=== PATIENT | male | born 1975 | race Caucasian/White ===

== ENCOUNTER 2016-07-04 12:13 | Inpatient (IN) | payer OTHER ==
[2016-07-03 13:37] VITALS: BMI 41.3
[~2016-07-04] VITALS: Ht 175.3 cm; Wt 122.0 kg
[2016-07-04] VITALS (25 sets, daily range): BP systolic 108–189; BP diastolic 53–103; PULSE 88–117; RESP 11–25; Ht 175.3 cm; Wt 122.0 kg
[~2016-07-04 12:13] MED LIST: CEFAZOLIN 1 GM INJ ONE; METF500T4 PO; NORCO
[2016-07-04] MEDS ORDERED: morphine 2 MG INJ IV ONE (13:30)
[2016-07-04] MEDS ORDERED: INSULIN ASPART [NOVOLOG] 3 ML PEN SC ONE (13:30)
[2016-07-04] MEDS ORDERED: FENTAnyl 50 MCG/ML VIAL ONE ×2 (13:56→16:49)
[2016-07-04] MEDS ORDERED: MIDAZOLAM 1 MG/ML 2 ML INJ ONE (13:56)
[2016-07-04] MEDS ORDERED: BUPIVACAINE 0.25%/EPI (SDV) 30 ML INJ ONE (13:57)
[2016-07-04] MEDS ORDERED: ROPIVACAINE 0.5 % 30 ML VIAL ONE (13:57)
[2016-07-04] MEDS ORDERED: POLYMYXIN/BACITRACIN 1L IRRIG ONE (14:04)
--- NOTE | 2016-07-04 14:28 | HPN ---
Date/Time of Note Date/Time of Note DATE: 07/04/16 TIME: 14:28 Interval H&P Admission Note Pt. seen H&P reviewed: No system changes SHERLY TORO MD Jul 04, 2016 14:28
[2016-07-04] MEDS ORDERED: ONDANSETRON 4 MG INJ IV PRN ×2 (14:30→17:00)
[2016-07-04] MEDS ORDERED: BISACODYL 10 MG SUPP PR PRN (14:30)
[2016-07-04] MEDS ORDERED: DIPHENHYDRAMINE 25 MG CAP PO PRN (14:30)
[2016-07-04] MEDS ORDERED: CEFAZOLIN 1 GM INJ IV SCH (14:30)
[2016-07-04] MEDS ORDERED: MAGNESIUM HYDROXIDE 30ML CUP PO PRN (14:30)
[2016-07-04] MEDS ORDERED: POVIDONE IODINE 10% 28.4 GM OINT ONE (16:09)
[2016-07-04] MEDS ORDERED: ROCURONIUM 50 MG INJ ONE (16:15)
[2016-07-04] MEDS ORDERED: PROPOFOL 40 ML ONE (16:15)
[2016-07-04] MEDS ORDERED: LIDOCAINE 100 MG SYRINGE ONE (16:15)
[2016-07-04] MEDS ORDERED: ONDANSETRON 4 MG INJ ONE (16:16)
--- NOTE | 2016-07-04 16:48 | OPR ---
Date/Time of Note Date/Time of Note DATE: 07/04/16 TIME: 16:39 Operative Report Procedure Date: Jul 04, 2016 Preoperative Diagnosis 1.left ankle painful hardware status post Maisonneuve fracture syndesmotic fixation Postoperative Diagnosis 1.left ankle painful hardware status post Maisonneuve fracture syndesmotic fixation 2. widening of left ankle syndesmosis 3. Broken left ankle hardware Operation Performed 1.left ankle hardware removal 2.left ankle revision open reduction internal fixation of syndesmosis Surgeon: SHERLY TORO MD Anesthesia: general, other (regional block popliteal and saphenous) Anesthesiologist: JAIDA LIANG MD Tourniquet Time: 60 minutes at 250 mmHg Estimated Blood Loss: 10 - 50 ml's Specimens Removed hardware Complications: None Pt Condition Post Procedure: stable Disposition: PACU Indications Patient is a 41-year-old gentleman who sustained a Maisonneuve fracture dislocation in February 2016 that was treated with 2 screws at that time. Patient was initially nonweightbearing for the first 10-12 weeks and then after beginning weightbearing on it I noticed increasing pain around week 16 where was noticed that he had broken screw as well as both screws were backing out. Thus patient was indicated for surgical removal of the hardware as well as possible open reduction and internal fixation of the syndesmosis. Operative Findings Patient had the correct operative extremity marked in the preoperative holding area and confirmed with patient and consent. Patient was then brought back to the operative theater placed supine operative table and given preoperative regional block anesthesia and antibiotics. The operative extremity was placed with a nonsterile tourniquet. Patient was then prepped and draped in a normal sterile fashion and a timeout was taken and all parties in the room agreed as correct patient, extremity and procedure. Patient was then tourniquet brought up to 250 mmHg. Incision was made over the previous incision site and both's the distal screw and washer were removed as well as the proximal screw had broken was removed with a washer. There is no evidence of any infection although cultures were taken at the time. All screw holes were then curetted thoroughly. And the wound was irrigated thoroughly. The ankle was then tested under fluoroscopic guidance with manual external rotation stress test showing slight widening of the medial clear space and given the ongoing pain and concern for continued syndesmotic injury. We then placed a 4 hole Arthrex plate at the previous site of hardware and 2 screws were placed on the proximal side and 2 tightropes were placed with a Villarreal clamp holding reduction. In order to confirm and there is no interposition of soft tissue on the medial side a small incision was made on the medial side to ensure proper reduction of the button to the tibia. It was confirmed that there is no further widening of the syndesmosis and all wounds were irrigated thoroughly and closed with 3-0 Vicryl followed by 3-0 Monocryl followed by 3-0 nylon. Wounds were then dressed with Xeroform and Betadine ointment and dressed with 4 x 4's 5 ABDs and placed in a well-padded short leg splint in the neutral position. All phalangeal counts were correct. SHERLY TORO MD Jul 04, 2016 16:47
[2016-07-04] MEDS ORDERED: HYDROmorphONE (0.2 MG/ML) 10ML SYG IV ONE (16:49)
[2016-07-04] MEDS: morphine 1 MG/ML 30 ML (PCA) IV SCH (16:51)
[2016-07-04] MEDS ORDERED: DIPHENHYDRAMINE 50 MG INJ IV PRN (17:00)
[2016-07-04] MEDS ORDERED: hydrALAzine 20 MG INJ IV PRN (17:00)
[2016-07-04] MEDS ORDERED: HYDROmorphONE (0.2 MG/ML) 10ML SYG IV PRN ×2 (17:00)
[2016-07-04] MEDS ORDERED: NALOXONE (0.4 MG/ML) INJ IV PRN (17:00)
[2016-07-04] MEDS ORDERED: LABETALOL HCL 20MG INJ IV PRN (17:00)
[2016-07-04] MEDS ORDERED: MEPERIDINE 25 MG INJ IV PRN (17:00)
[2016-07-04] MEDS ORDERED: morphine (1 MG/ML) 10ML SYRINGE IV PRN ×2 (17:00)
[2016-07-04] MEDS ORDERED: KETOROLAC 30 MG INJ ONE (17:05)
[2016-07-04] MEDS ORDERED: FENTAnyl 50 MCG/ML VIAL IV PRN ×3 (17:30)
[2016-07-04] MEDS ORDERED: KETOROLAC 30 MG INJ IV ONE (17:30)
[2016-07-04] MEDS ORDERED: GLUCOSE GEL 15 GRAM TUBE BUCCAL PRN (19:30)
[2016-07-04] MEDS ORDERED: GLUCOSE GEL 15 GRAM TUBE PO PRN ×2 (19:30)
[2016-07-04] MEDS ORDERED: DEXTROSE 50% 50 ML SYRINGE IV PRN ×2 (19:30)
[2016-07-04] MEDS ORDERED: GLUCAGON 1 MG INJ IM PRN (19:30)
[2016-07-04] MEDS: metFORMIN 500 MG TAB PO SCH (20:00)
[2016-07-04] MEDS: SENNA/DOCUSATE NA (8.6MG/50MG) TAB PO SCH (20:36)
[2016-07-04] MEDS: INSULIN ASPART [NOVOLOG] 3 ML PEN SC SCH (20:59)
[2016-07-04] MEDS ORDERED: oxyCODONE 5 MG TAB PO PRN (21:00)
[2016-07-04] MEDS ORDERED: oxyCODONE (CR) 10 MG TAB [oxyCONTIN] PO SCH (21:00)
[2016-07-04] MEDS: GABAPENTIN 300 MG CAP PO SCH (21:37)
[2016-07-04] MEDS: CEFAZOLIN 2 GM/50 ML (PMX) 50 ML IVPB SCH (21:37)
--- NOTE | 2016-07-04 23:09 | CONS ---
DATE OF ADMISSION: 07/04/2016 DATE OF CONSULTATION: 07/04/2016 PHYSICIAN REQUESTING CONSULTATION: Dr. Jung REASON FOR CONSULTATION: Medical management. HISTORY OF PRESENT ILLNESS: This is a pleasant 41-year-old gentleman with past medical history of l eft ankle fracture, diabetes mellitus. Left ankle fracture occurred in 01/2016 and had surgical int ervention with pin placement in his left ankle, although he had some difficulty with ambulating and had left ankle painful hardware status post Maisonneuve fracture. Had domestic fixation, was seen a nd evaluated by orthopedic surgeon, and after initially nonweightbearing for the first 10 to 12, in 02/2016, the fracture was Maisonneuve fracture-dislocation, and he was treated with 2 screws at that time. The patient was initially nonweightbearing for the first 10 to 12 weeks, and after began luke ghtbearing on it he noticed increasing pain around 16 weeks. It was noted that he had broken one of the screws as well as both screws were backing out. The patient was seen and evaluated by orthoped ic surgeon, and it was indicated for surgical removal of hardware as well as a possible open reducti on, internal fixation of syndesmosis. Today on 07/04/2016, patient was admitted by orthopedic surge on for left ankle hardware removal and left ankle revision; open reduction, internal fixation of syn desmosis. The patient under general anesthesia had the procedure. He tolerated procedure well and was taken to recovery room, and medical team was consulted. At this time, the patient denies having any chest pain, shortness of breath, nausea, vomiting, diarrhea. No headache, dizziness, lighthead edness. No change in visual acuity, diplopia, photophobia. No shortness of breath, chest pain, num bness, weakness in his extremities or any other discomfort. PAST MEDICAL AND SURGICAL HISTORY: 1. Diabetes mellitus. 2. Status post left ankle fracture. 3. Status post left ankle revision and open reduction, internal fixation of the left ankle. MEDICATIONS: 1. Tabor. 2. Metformin. SOCIAL HISTORY: Negative x3 for smoking, alcohol, illicit drugs. FAMILY HISTORY: Noncontributory. REVIEW OF SYSTEMS: As above per HPI. Otherwise, 12-point review of systems was found to be negativ e. PHYSICAL EXAMINATION: VITAL SIGNS: Temperature 98, pulse 113, respirations 20, blood pressure 108/55, saturation 98% in r oom air. GENERAL APPEARANCE: The patient is lying in bed comfortably without any distress. He is awake, freda rt, oriented. He is able to answer my questions properly. Body habitus mildly overweight. EYES, EARS, NOSE, THROAT: Conjunctivae, lids are normal. Pupils are normal. Extraocular normal. Hearing grossly normal. Lips, teeth are normal. Oral mucosa is moist. NECK: Supple. Trachea is midline. No lymphadenopathy. RESPIRATORY: Effort is normal. Clear to auscultate bilaterally. CARDIOVASCULAR: Normal S1, S2. Regular rhythm and rate. No murmur, no bruits, no edema. Peripher al pulses, radial pulses palpable. Capillary refill is normal. CHEST: Normal expansion of thorax during inspiration. GASTROINTESTINAL: Abdomen soft, nontender, not distended. Bowel sounds are present. No guarding, rebound. GENITOURINARY: Deferred. MUSCULOSKELETAL: Upper extremities within normal limits. Right lower extremity within normal limit s. Left lower extremity is status post surgical interventions and dry dressing. NEUROLOGIC: Cranial nerves II-XII are grossly intact. PSYCHIATRIC: Normal judgment, insight. Alert, oriented x3. Mood and affect are normal. LABORATORY WORK: Glucose 238 and 194. ASSESSMENT AND PLAN: 1. Left ankle painful, however status post Maisonneuve fracture, syndesmotic fixation ____ in the l eft ankle syndesmosis. The patient is status post left ankle hardware removal and left ankle revisi on, open reduction and internal fixation of syndesmosis. Continue postsurgical care, pain medicatio n. The patient has been placed on cefazolin, Xarelto postoperatively. 2. Diabetes mellitus, uncontrolled. At this time, we will increase the patient's metformin, place patient on insulin sliding scale, low-carb diet. 3. For deep prophylaxis, on Xarelto. 4. We will continue to monitor patient closely. Further recommendations, management and treatment as per clinical course. Total amount of time spent for evaluation of patient and admission workup 40 minutes. Dictated By: MELINDA BROUSSARD MD PN/NTS Conf#: [id number] DID#: [id number]
[2016-07-05] MEDS: morphine 1 MG/ML 30 ML (PCA) IV SCH (00:02)
[2016-07-05] MEDS: CEFAZOLIN 2 GM/50 ML (PMX) 50 ML IVPB SCH ×2 (05:16→14:22)
[2016-07-05] MEDS: oxyCODONE 5 MG TAB PO PRN ×5 (05:17→22:07)
[2016-07-05 05:20] LABS: BASOPHILS % 0.3 % (0.0-2.0); EOSINOPHILS # 0.1 10^3/ul (0.0-0.5); EOSINOPHILS % 1.3 % (0.0-7.0); HEMATOCRIT 44.5 % (42.0-52.0); HEMOGLOBIN 15.4 g/dl (14.0-18.0); LYMPHOCYTES # 2.3 10^3/ul (0.8-2.9); LYMPHOCYTES % 29.6 % (15.0-51.0); MEAN CORPUSCULAR HEMOGLOBIN 29.8 pg (29.0-33.0); MEAN CORPUSCULAR HGB CONC 34.6 g/dl (32.0-37.0); MEAN CORPUSCULAR VOLUME 86.3 fl (82.0-101.0); MEAN PLATELET VOLUME 8.3 fl (7.4-10.4); MONOCYTE # 0.7 10^3/ul (0.3-0.9); NEUTROPHIL # 4.6 10^3/ul (1.6-7.5); NEUTROPHILS % 59.8 % (39.0-77.0); PLATELET COUNT 312 10^3/UL (140-440); RED BLOOD COUNT 5.16 10^6/ul (4.70-6.10); RED CELL DISTRIBUTION WIDTH 13.4 % (11.5-14.5); UNCORRECTED WBC 7.6 10^3/ul (4.8-10.8); WHITE BLOOD COUNT 7.6 10^3/ul (4.8-10.8)
[2016-07-05 05:32] LABS: POTASSIUM 4.7 mmol/L (3.5-5.1)
[2016-07-05 05:35] LABS: CREATININE 0.74 mg/dl (0.61-1.24)
[2016-07-05 05:38] VITALS: BP 136/83; PULSE 86
[2016-07-05 05:48] LABS: CONDITION 1
--- NOTE | 2016-07-05 07:40 | RADRPT ---
PROCEDURE: X-ray fluoroscopy guidance CLINICAL INDICATION: Injury, pain TECHNIQUE: Fluoroscopic guidance was utilized for left ankle hardware removal. COMPARISON: None available FINDINGS: Fluoroscopic guidance was provided. 51.6 seconds of fluoroscopy time was utilized for the procedure . 6 images were obtained during the procedure in progress. IMPRESSION: 1. X-ray fluoroscopic guidance, as above. RPTAT: QQ .Polo Kan MD, MD Date Time Electronically viewed and signed by .Polo Kan MD, on 07/05/2016 07:40 .R/
[2016-07-05] MEDS ORDERED: oxyCODONE 5 MG TAB PO PRN (08:00)
[2016-07-05] MEDS: GABAPENTIN 300 MG CAP PO SCH ×3 (08:21→20:10)
[2016-07-05] MEDS: SENNA/DOCUSATE NA (8.6MG/50MG) TAB PO SCH ×2 (08:21→20:11)
[2016-07-05] MEDS: metFORMIN 500 MG TAB PO SCH ×2 (08:21→17:44)
[2016-07-05 08:24] VITALS: BP 122/81; RESP 20
[2016-07-05] MEDS: INSULIN ASPART [NOVOLOG] 3 ML PEN SC SCH ×4 (08:24→21:01)
[2016-07-05] MEDS ORDERED: oxyCODONE (CR) 15 MG TAB [oxyCONTIN] PO SCH (09:00)
[2016-07-05] MEDS ORDERED: oxyCODONE (CR) 20 MG TAB [oxyCONTIN] PO SCH (13:00)
[2016-07-05] MEDS: ACETAMINOPHEN 325 MG TAB PO SCH ×2 (14:22→22:07)
--- NOTE | 2016-07-05 14:40 | CONS ---
Date/Time of Note Date/Time of Note DATE: 07/05/16 TIME: 14:25 Assessment/Plan Assessment/Plan Chief Complaint/Hosp Course Very pleasant male status post left ankle surgery. I was consulted by Dr Edson Toro to help manage his pain. Pain is poorly controlled VAS 8/10. My recommendations 1. Oxycontin 20 mg TID 2. Oxycodone 10-15 mg q4-6 hr prn 3. Tylenol 650 q8r 4. Gabapentin 300 mg TID 5. 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 Problems: Consultation Date/Type/Reason Admit Date/Time 07/04/16 Date of Consultation: Jul 05, 2016 Type of Consultation: Pain Management Reason for Consultation uncontrolled pain Referring Provider: SHERLY TORO MD Hx of Present Illness very pleasant male with past medical history significant for hypertension, diabetes, s/p extensive left ankle surgery. He reports poor pain control. VAS 8 /10 V Constitutional: improved, no complaints Eyes: no complaints ENT: no complaints Respiratory: no complaints Cardiovascular: no complaints Gastrointestinal: no complaints Genitourinary: no complaints Musculoskeletal: no complaints, other (left foot pain ) Skin: no complaints Neurologic: no complaints Endocrine: no complaints Lymphatic: no complaints Psychological: nl mood/affect, no complaints Immunologic: no complaints Past Medical History Medical History: diabetes, hypertension Past Surgical History left foot surger Family History Significant Family History: diabetes, hypertension Social History Smoking Status: Never smoker Exam/Review of Systems Vital Signs Vitals Vital Signs Date Time Temp Pulse Resp B/P Pulse Ox O2 Delivery O2 Flow Rate FiO2 07/05/16 08:24 97.5 87 20 122/81 98 07/05/16 05:38 Room Air 07/04/16 20:15 2.0 Intake and Output 07/04/16 07/04/16 07/05/16 15:00 23:00 07:00 Intake Total 1650 ml 1250 ml Output Total 525 ml 1220 ml Balance 1125 ml 30 ml Exam Constitutional: alert, oriented, well developed Respiratory: clear to auscultation, normal air movement Cardiovascular: regular rate and rhythm Results Result Diagram: 07/05/16 0441 07/05/16 0441 Results 24 hrs Laboratory Tests Test 07/04/16 16:39 07/04/16 18:47 07/04/16 20:56 07/05/16 01:31 Bedside Glucose 194 223 H 219 269 H Test 07/05/16 04:41 07/05/16 08:11 07/05/16 12:10 Anion Gap 18 H Basophils # 0.0 Basophils % 0.3 Blood Urea Nitrogen 17 Calcium Level 9.0 Carbon Dioxide Level 29 Chloride Level 96 L Creatinine 0.74 Eosinophils # 0.1 Eosinophils % 1.3 Glucose Level 247 H Hematocrit 44.5 Hemoglobin 15.4 Lymphocytes # 2.3 Lymphocytes % 29.6 Mean Corpuscular Hemoglobin 29.8 Mean Corpuscular Hemoglobin Concent 34.6 Mean Corpuscular Volume 86.3 Mean Platelet Volume 8.3 Monocytes # 0.7 Monocytes % 9.0 Neutrophils # 4.6 Neutrophils % 59.8 Nucleated Red Blood Cells # 0.0 Nucleated Red Blood Cells % 0.0 Platelet Count 312 Potassium Level 4.7 Red Blood Count 5.16 Red Cell Distribution Width 13.4 Sodium Level 138 White Blood Count 7.6 # Bedside Glucose 208 212 Medications Medications Current Medications Senna/Docusate Sodium (Senokot-S) 1 tab BID PO Last administered on 07/05/16t 08 :21; Admin Dose 1 TAB; Start 07/04/16 at 21:00 Simethicone (Mylicon) 80 mg TID PRN PO DISTENSION/GAS/BLOATING; Start 07/04/16 at 14:30 Magnesium Hydroxide (Milk Of Mag) 30 ml BID PRN PO CONSTIPATION; Start 07/04/16 at 14:30 Magnesium Hydroxide (Milk Of Mag) 30 ml HS PO ; Start 07/06/16 at 21:00 Bisacodyl (Dulcolax Supp) 10 mg DAILY PRN OR CONSTIPATION; Start 07/04/16 at 14: 30 Ondansetron HCl (Zofran Inj) 4 mg Q4H PRN IV NAUSEA AND/OR VOMITING; Start 07/04 at 14:30 Diphenhydramine HCl (Benadryl) 25 mg Q4H PRN PO ITCHING; Start 07/04/16 at 14:30 Naloxone HCl 0.2 mg 0.2 mg Q2M PRN IV FOR RESP RATE 8 OR LESS; Start 07/04/16 at 17:00 Cefazolin Sodium/ Dextrose (Ancef 2 Gm/50 ml (Pmx)) 50 ml @ 100 mls/hr Q8 IVPB Last administered on 07/05/16 14:22; Admin Dose 100 MLS/HR; Start 07/04/16 at 22:00; Stop 07/05/16 at 14:29 Miscellaneous Information 1 ea NOTE XX ; Start 07/04/16 at 19:30 Glucose (Glutose) 15 gm Q15M PRN PO DECREASED GLUCOSE; Start 07/04/16 at 19:30 Glucose (Glutose) 22.5 gm Q15M PRN PO DECREASED GLUCOSE; Start 07/04/16 at 19:30 Dextrose (D50w Syringe) 25 ml Q15M PRN IV DECREASED GLUCOSE; Start 07/04/16 at 19:30 Dextrose (D50w Syringe) 50 ml Q15M PRN IV DECREASED GLUCOSE; Start 07/04/16 at 19:30 Glucagon (Glucagen) 1 mg Q15M PRN IM DECREASED GLUCOSE; Start 07/04/16 at 19:30 Glucose (Glutose) 15 gm Q15M PRN BUCCAL DECREASED GLUCOSE; Start 07/04/16 at 19: 30 Gabapentin (Neurontin) 300 mg TID PO Last administered on 07/05/16 12:47; Admin Dose 300 MG; Start 07/04/16 at 21:30 Oxycodone HCl (Roxicodone) 5 mg Q4H PRN PO PAIN Last administered on 07/05/16 00:14; Admin Dose 5 MG; Start 07/04/16 at 21:00 Oxycodone HCl (Roxicodone) 10 mg Q4H PRN PO PAIN Last administered on 07/05/16 10:25; Admin Dose 10 MG; Start 07/04/16 at 21:00 Acetaminophen (Tylenol Tab) 650 mg Q8 PO Last administered on 07/05/16 14:22; Admin Dose 650 MG; Start 07/05/16 at 14:00 Oxycodone HCl (Oxycontin) 20 mg TID PO Last administered on 07/05/16 12:47; Admin Dose 20 MG; Start 07/05/16 at 13:00 Oxycodone HCl (Roxicodone) 15 mg Q4H PRN PO SEVERE PAIN LEVEL 7-10; Start at 13:00 ELDER CHIANG Jul 05, 2016 14:36
--- NOTE | 2016-07-05 14:47 | CONS ---
Date/Time of Note Date/Time of Note DATE: 07/05/16 TIME: 14:45 Assessment/Plan Assessment/Plan Chief Complaint/Hosp Course ASSESSMENT AND PLAN: 1. Left ankle painful, however status post Maisonneuve fracture, syndesmotic fixation in the left ankle syndesmosis. The patient is status post left ankle hardware removal and left ankle revision, open reduction and internal fixation of syndesmosis. Continue postsurgical care, pain medication. The patient has been placed on cefazolin, Xarelto postoperatively. 2. Diabetes mellitus, continue metformin, and insulin sliding scale, low-carb diet. 3. For deep prophylaxis, on Xarelto. We will continue to monitor patient closely. Further recommendations, management and treatment as per clinical course. Problems: Consultation Date/Type/Reason Admit Date/Time 07/04/16 Initial Consult Date 07/05/16 Type of Consultation: Pain Management Referring Provider: SHERLY TORO MD 24 HR Interval Summary Free Text/Dictation Patient continues to complain of having minimal left ankle and foot pain No nausea vomiting diarrhea Denies of any chest pain Exam/Review of Systems Vital Signs Vitals Vital Signs Date Time Temp Pulse Resp B/P Pulse Ox O2 Delivery O2 Flow Rate FiO2 07/05/16 08:24 97.5 87 20 122/81 98 07/05/16 05:38 Room Air 07/04/16 20:15 2.0 Intake and Output 07/04/16 07/04/16 07/05/16 15:00 23:00 07:00 Intake Total 1650 ml 1250 ml Output Total 525 ml 1220 ml Balance 1125 ml 30 ml Exam General: The patient is well-developed, Not in acute distress. HEENT: Atraumatic, normocephalic. The pupils are equal and round . Neck: Supple with full range of motion. Chest: Normal expansion of the thorax during inspiration Lungs: Clear to auscultation bilaterally Heart: Normal S1-S2, Regular rhythm and rate. Abdomen: Soft , nontender, nondistended , bowel sounds are present. Extremities: Left foot is in soft cast, sensory is intact, no edema no cyanosis Neurologic: Normal mental status,The patient is awake, alert and oriented . Results Result Diagram: 07/05/16 0441 07/05/16 0441 Results 24 hrs Laboratory Tests Test 07/04/16 16:39 07/04/16 18:47 07/04/16 20:56 07/05/16 01:31 Bedside Glucose 194 223 H 219 269 H Test 07/05/16 04:41 07/05/16 08:11 07/05/16 12:10 Anion Gap 18 H Basophils # 0.0 Basophils % 0.3 Blood Urea Nitrogen 17 Calcium Level 9.0 Carbon Dioxide Level 29 Chloride Level 96 L Creatinine 0.74 Eosinophils # 0.1 Eosinophils % 1.3 Glucose Level 247 H Hematocrit 44.5 Hemoglobin 15.4 Lymphocytes # 2.3 Lymphocytes % 29.6 Mean Corpuscular Hemoglobin 29.8 Mean Corpuscular Hemoglobin Concent 34.6 Mean Corpuscular Volume 86.3 Mean Platelet Volume 8.3 Monocytes # 0.7 Monocytes % 9.0 Neutrophils # 4.6 Neutrophils % 59.8 Nucleated Red Blood Cells # 0.0 Nucleated Red Blood Cells % 0.0 Platelet Count 312 Potassium Level 4.7 Red Blood Count 5.16 Red Cell Distribution Width 13.4 Sodium Level 138 White Blood Count 7.6 # Bedside Glucose 208 212 Medications Medications Current Medications Senna/Docusate Sodium (Senokot-S) 1 tab BID PO Last administered on 07/05/16t 08 :21; Admin Dose 1 TAB; Start 07/04/16 at 21:00 Simethicone (Mylicon) 80 mg TID PRN PO DISTENSION/GAS/BLOATING; Start 07/04/16 at 14:30 Magnesium Hydroxide (Milk Of Mag) 30 ml BID PRN PO CONSTIPATION; Start 07/04/16 at 14:30 Magnesium Hydroxide (Milk Of Mag) 30 ml HS PO ; Start 07/06/16 at 21:00 Bisacodyl (Dulcolax Supp) 10 mg DAILY PRN [place] CONSTIPATION; Start 07/04/16 at 14: 30 Ondansetron HCl (Zofran Inj) 4 mg Q4H PRN IV NAUSEA AND/OR VOMITING; Start 07/04 at 14:30 Diphenhydramine HCl (Benadryl) 25 mg Q4H PRN PO ITCHING; Start 07/04/16 at 14:30 Naloxone HCl (Narcan) 0.2 mg Q2M PRN IV FOR RESP RATE 8 OR LESS; Start 07/04/16 at 17:00 Miscellaneous Information 1 ea NOTE XX ; Start 07/04/16 at 19:30 Glucose (Glutose) 15 gm Q15M PRN PO DECREASED GLUCOSE; Start 07/04/16 at 19:30 Glucose (Glutose) 22.5 gm Q15M PRN PO DECREASED GLUCOSE; Start 07/04/16 at 19:30 Dextrose (D50w Syringe) 25 ml Q15M PRN IV DECREASED GLUCOSE; Start 07/04/16 at 19:30 Dextrose (D50w Syringe) 50 ml Q15M PRN IV DECREASED GLUCOSE; Start 07/04/16 at 19:30 Glucagon (Glucagen) 1 mg Q15M PRN IM DECREASED GLUCOSE; Start 07/04/16 at 19:30 Glucose (Glutose) 15 gm Q15M PRN BUCCAL DECREASED GLUCOSE; Start 07/04/16 at 19: 30 Gabapentin (Neurontin) 300 mg TID PO Last administered on 07/05/16 12:47; Admin Dose 300 MG; Start 07/04/16 at 21:30 Oxycodone HCl (Roxicodone) 5 mg Q4H PRN PO PAIN Last administered on 07/05/16 00:14; Admin Dose 5 MG; Start 07/04/16 at 21:00 Oxycodone HCl (Roxicodone) 10 mg Q4H PRN PO PAIN Last administered on 07/05/16 10:25; Admin Dose 10 MG; Start 07/04/16 at 21:00 Acetaminophen (Tylenol Tab) 650 mg Q8 PO Last administered on 07/05/16 14:22; Admin Dose 650 MG; Start 07/05/16 at 14:00 Oxycodone HCl (Oxycontin) 20 mg TID PO Last administered on 07/05/16 12:47; Admin Dose 20 MG; Start 07/05/16 at 13:00 Oxycodone HCl (Roxicodone) 15 mg Q4H PRN PO SEVERE PAIN LEVEL 7-10 Last administered on 07/05/16 14:32; Admin Dose 15 MG; Start 07/05/16 at 13:00 MELINDA BROUSSARD MD Jul 05, 2016 14:47
[2016-07-05] MEDS: RIVAROXABAN 10 MG TABLET PO SCH (17:44)
--- NOTE | 2016-07-05 18:34 | PN ---
Date/Time of Note Date/Time of Note DATE: 07/05/16 TIME: 18:31 Assessment/Plan Lines/Catheters IV Catheter Type (from Nrsg): Saline Lock Palomares in Place (from Nrsg): No Assessment/Plan Assessment/Plan POD# 1 s/p left ankle HWR, revision syndesmosis ORIF s/p maissounve; Uncontrolled DM, HTN - Pain control per pain mgmt tea, - DM control from Hospitalist team - NWB to the LLE - PT to GT - jaylene, SCDs, genaro -- Ag TORO MD Subjective 24 Hr Interval Summary Doing better. Pain still not well controlled.No f/c/n/v Constitutional: no complaints Feeding: advancing diet Pain Control: severe Exam/Review of Systems Vital Signs Vitals Vital Signs Date Time Temp Pulse Resp B/P Pulse Ox O2 Delivery O2 Flow Rate FiO2 07/05/16 08:24 97.5 87 20 122/81 98 07/05/16 05:38 Room Air 07/04/16 20:15 2.0 Intake and Output 07/04/16 07/04/16 07/05/16 15:00 23:00 07:00 Intake Total 1650 ml 1250 ml Output Total 525 ml 1220 ml Balance 1125 ml 30 ml Exam Constitutional: alert, oriented, well developed Psych: nl mood/affect, no complaints Musculoskeletal: other (LLE/ splint intact, silt m/l/d/p/fdws, toes wiggle, cr brisk) Results Result Diagram: 07/05/1644007/05/16440 SHERLY TORO MD Jul 05, 2016 18:34
[2016-07-05 19:30] VITALS: BP 140/77; RESP 20
[2016-07-05] MEDS: oxyCODONE (CR) 10 MG TAB [oxyCONTIN] PO SCH (20:11)
[2016-07-05 20:30] VITALS: BP 125/72; PULSE 82
[2016-07-06 00:02] VITALS: BP 123/71; PULSE 8
[2016-07-06] MEDS: oxyCODONE 5 MG TAB PO PRN ×5 (02:02→23:46)
[2016-07-06] MEDS: ACETAMINOPHEN 325 MG TAB PO SCH ×3 (06:30→21:17)
[2016-07-06 08:33] VITALS: BP 131/68; RESP 16
[2016-07-06] MEDS: SENNA/DOCUSATE NA (8.6MG/50MG) TAB PO SCH ×2 (09:07→20:58)
[2016-07-06] MEDS: metFORMIN 500 MG TAB PO SCH ×2 (09:07→18:24)
[2016-07-06] MEDS: oxyCODONE (CR) 10 MG TAB [oxyCONTIN] PO SCH ×3 (09:08→20:58)
[2016-07-06] MEDS: GABAPENTIN 300 MG CAP PO SCH ×3 (09:08→20:58)
[2016-07-06] MEDS: INSULIN ASPART [NOVOLOG] 3 ML PEN SC SCH ×4 (09:12→21:02)
[2016-07-06] MEDS ORDERED: GLYB2.5T2 PO (10:53)
[2016-07-06] MEDS ORDERED: METF1000 PO (10:53)
--- NOTE | 2016-07-06 10:56 | CONS ---
Date/Time of Note Date/Time of Note DATE: 07/06/16 TIME: 10:53 Assessment/Plan Assessment/Plan Chief Complaint/Hosp Course ASSESSMENT AND PLAN: 1. Left ankle painful, however status post [place] fracture, syndesmotic fixation in the left ankle syndesmosis. The patient is status post left ankle hardware removal and left ankle revision, open reduction and internal fixation of syndesmosis. Continue postsurgical care, pain medication. The patient has been placed on cefazolin, Xarelto postoperatively. 2. Diabetes mellitus, continue metformin, patient has been started on glyburide twice daily continue low-carb diet. 3. For deep prophylaxis, on Xarelto. Patient is stable to be discharged home at medical standpoint with a close follow-up with orthopedic surgeon Patient should follow up with his primary care physician as outpatient regarding his diabetic mellitus Problems: Consultation Date/Type/Reason Admit Date/Time Jul 04, 2016 at 14:37 Initial Consult Date 07/05/16 Type of Consultation: Pain Management Referring Provider: SHERLY TORO MD 24 HR Interval Summary Free Text/Dictation Patient denies any chest pain or shortness of breath Minimal pain in the left foot Exam/Review of Systems Vital Signs Vitals Vital Signs Date Time Temp Pulse Resp B/P Pulse Ox O2 Delivery O2 Flow Rate FiO2 07/06/16 08:33 98.1 83 16 131/68 97 07/06/16 00:02 Room Air 07/04/16 20:15 2.0 Intake and Output 07/05/16 07/05/16 07/06/16 15:00 23:00 07:00 Intake Total 2000 ml 1800 ml Output Total 2500 ml 2000 ml Balance -500 ml -200 ml Exam General: The patient is well-developed, Not in acute distress. HEENT: Atraumatic, normocephalic. The pupils are equal and round . Neck: Supple with full range of motion. Chest: Normal expansion of the thorax during inspiration Lungs: Clear to auscultation bilaterally Heart: Normal S1-S2, Regular rhythm and rate. Abdomen: Soft , nontender, nondistended , bowel sounds are present. Extremities: Left foot/ankle in soft brace, sensory is intact, no edema no cyanosis Neurologic: Normal mental status,The patient is awake, alert and oriented . Results Result Diagram: 07/05/16 0441 07/05/16 0441 Results 24 hrs Laboratory Tests Test 07/05/16 12:10 07/05/16 17:02 07/05/16 20:56 07/06/16 02:06 Bedside Glucose 212 201 218 225 H Test 07/06/16 07:52 Bedside Glucose 223 H Medications Medications Current Medications Senna/Docusate Sodium (Senokot-S) 1 tab BID PO Last administered on 07/06/16t 09:07; Admin Dose 1 TAB; Start 07/04/16 at 21:00 Simethicone (Mylicon) 80 mg TID PRN PO DISTENSION/GAS/BLOATING; Start 07/04/16 at 14:30 Magnesium Hydroxide (Milk Of Mag) 30 ml BID PRN PO CONSTIPATION; Start 07/04/16 at 14:30 Magnesium Hydroxide (Milk Of Mag) 30 ml HS PO ; Start 07/06/16 at 21:00 Bisacodyl (Dulcolax Supp) 10 mg DAILY PRN [place] CONSTIPATION; Start 07/04/16 at 14: 30 Ondansetron HCl (Zofran Inj) 4 mg Q4H PRN IV NAUSEA AND/OR VOMITING; Start 07/04 at 14:30 Diphenhydramine HCl (Benadryl) 25 mg Q4H PRN PO ITCHING; Start 07/04/16 at 14:30 Naloxone HCl (Narcan) 0.2 mg Q2M PRN IV FOR RESP RATE 8 OR LESS; Start 07/04/16 at 17:00 Miscellaneous Information 1 ea NOTE XX ; Start 07/04/16 at 19:30 Glucose (Glutose) 15 gm Q15M PRN PO DECREASED GLUCOSE; Start 07/04/16 at 19:30 Glucose (Glutose) 22.5 gm Q15M PRN PO DECREASED GLUCOSE; Start 07/04/16 at 19:30 Dextrose (D50w Syringe) 25 ml Q15M PRN IV DECREASED GLUCOSE; Start 07/04/16 at 19:30 Dextrose (D50w Syringe) 50 ml Q15M PRN IV DECREASED GLUCOSE; Start 07/04/16 at 19:30 Glucagon (Glucagen) 1 mg Q15M PRN IM DECREASED GLUCOSE; Start 07/04/16 at 19:30 Glucose (Glutose) 15 gm Q15M PRN BUCCAL DECREASED GLUCOSE; Start 07/04/16 at 19: 30 Oxycodone HCl (Roxicodone) 5 mg Q4H PRN PO PAIN Last administered on 07/05/16 00:14; Admin Dose 5 MG; Start 07/04/16 at 21:00 Oxycodone HCl (Roxicodone) 10 mg Q4H PRN PO PAIN Last administered on 07/05/16 10:25; Admin Dose 10 MG; Start 07/04/16 at 21:00 Acetaminophen (Tylenol Tab) 650 mg Q8 PO Last administered on 07/06/16 06:30; Admin Dose 650 MG; Start 07/05/16 at 14:00 Oxycodone HCl (Roxicodone) 15 mg Q4H PRN PO SEVERE PAIN LEVEL 7-10 Last administered on 07/06/16 10:33; Admin Dose 15 MG; Start 07/05/16 at 13:00 Gabapentin (Neurontin) 600 mg TID PO Last administered on 07/06/16 09:08; Admin Dose 600 MG; Start 07/05/16 at 21:00 Oxycodone HCl (Oxycontin) 30 mg TID PO Last administered on 07/06/16 09:08; Admin Dose 30 MG; Start 07/05/16 at 21:00 MELINDA BROUSSARD MD Jul 06, 2016 10:56
[2016-07-06 11:00] VITALS: BP 136/64; PULSE 77; RESP 18
--- NOTE | 2016-07-06 14:44 | CONS ---
Date/Time of Note Date/Time of Note DATE: 07/06/16 TIME: 14:34 Assessment/Plan Assessment/Plan Chief Complaint/Hosp Course Very pleasant male status post left ankle surgery post op day 2 . Pain moderately controlled at rest, mildly controlled with movement. Continue current medications, I encourage patient to use prn oxycodone. My recommendations for discharge are 1. Oxycontin 20 mg BID 2. [place] 10/325 mg q6hr prn 4. Gabapentin 600 mg TID 5. Patient has follow up appointment with me on 07/17/16 at 10 am Thank you for the consult , I am signing off. Please feel free to contact me [phone] Problems: Consultation Date/Type/Reason Admit Date/Time Jul 04, 2016 at 14:37 Initial Consult Date 07/05/16 Type of Consultation: Pain Management Reason for Consultation Poor pain control Referring Provider: SHERLY TORO MD Exam/Review of Systems Vital Signs Vitals Vital Signs Date Time Temp Pulse Resp B/P Pulse Ox O2 Delivery O2 Flow Rate FiO2 07/06/16 11:00 97.0 77 18 136/64 98 Room Air 07/04/16 20:15 2.0 Intake and Output 07/05/16 07/05/16 07/06/16 15:00 23:00 07:00 Intake Total 2000 ml 1800 ml Output Total 2500 ml 2000 ml Balance -500 ml -200 ml Exam Constitutional: alert Head: atraumatic, normocephalic Eyes: EOMI, PERRL, fundi, disc, nl conjunctiva, nl sclera ENMT: mucosa pink and moist Respiratory: clear to auscultation, normal air movement Cardiovascular: nl pulses, regular rate and rhythm Extremities: other Results Result Diagram: 07/05/16 0441 07/05/16 0441 Results 24 hrs Laboratory Tests Test 07/05/16 17:02 07/05/16 20:56 07/06/16 02:06 07/06/16 07:52 Bedside Glucose 201 218 225 H 223 H Test 07/06/16 11:41 Bedside Glucose 222 H Medications Medications Current Medications Senna/Docusate Sodium (Senokot-S) 1 tab BID PO Last administered on 07/06/16t 09:07; Admin Dose 1 TAB; Start 07/04/16 at 21:00 Simethicone (Mylicon) 80 mg TID PRN PO DISTENSION/GAS/BLOATING; Start 07/04/16 at 14:30 Magnesium Hydroxide (Milk Of Mag) 30 ml BID PRN PO CONSTIPATION; Start 07/04/16 at 14:30 Magnesium Hydroxide (Milk Of Mag) 30 ml HS PO ; Start 07/06/16 at 21:00 Bisacodyl (Dulcolax Supp) 10 mg DAILY PRN [place] CONSTIPATION; Start 07/04/16 at 14: 30 Ondansetron HCl (Zofran Inj) 4 mg Q4H PRN IV NAUSEA AND/OR VOMITING; Start 07/04 at 14:30 Diphenhydramine HCl (Benadryl) 25 mg Q4H PRN PO ITCHING; Start 07/04/16 at 14:30 Naloxone HCl (Narcan) 0.2 mg Q2M PRN IV FOR RESP RATE 8 OR LESS; Start 07/04/16 at 17:00 Miscellaneous Information 1 ea NOTE XX ; Start 07/04/16 at 19:30 Glucose (Glutose) 15 gm Q15M PRN PO DECREASED GLUCOSE; Start 07/04/16 at 19:30 Glucose (Glutose) 22.5 gm Q15M PRN PO DECREASED GLUCOSE; Start 07/04/16 at 19:30 Dextrose (D50w Syringe) 25 ml Q15M PRN IV DECREASED GLUCOSE; Start 07/04/16 at 19:30 Dextrose (D50w Syringe) 50 ml Q15M PRN IV DECREASED GLUCOSE; Start 07/04/16 at 19:30 Glucagon (Glucagen) 1 mg Q15M PRN IM DECREASED GLUCOSE; Start 07/04/16 at 19:30 Glucose (Glutose) 15 gm Q15M PRN BUCCAL DECREASED GLUCOSE; Start 07/04/16 at 19: 30 Oxycodone HCl (Roxicodone) 5 mg Q4H PRN PO PAIN Last administered on 07/05/16 00:14; Admin Dose 5 MG; Start 07/04/16 at 21:00 Oxycodone HCl (Roxicodone) 10 mg Q4H PRN PO PAIN Last administered on 07/05/16 10:25; Admin Dose 10 MG; Start 07/04/16 at 21:00 Acetaminophen (Tylenol Tab) 650 mg Q8 PO Last administered on 07/06/16 06:30; Admin Dose 650 MG; Start 07/05/16 at 14:00 Oxycodone HCl (Roxicodone) 15 mg Q4H PRN PO SEVERE PAIN LEVEL 7-10 Last administered on 07/06/16 10:33; Admin Dose 15 MG; Start 07/05/16 at 13:00 Gabapentin (Neurontin) 600 mg TID PO Last administered on 07/06/16 12:32; Admin Dose 600 MG; Start 07/05/16 at 21:00 Oxycodone HCl (Oxycontin) 30 mg TID PO Last administered on 07/06/16 12:33; Admin Dose 30 MG; Start 07/05/16 at 21:00 ELDER CHIANG Jul 06, 2016 14:44
[2016-07-06] MEDS ORDERED: glyBURIDE 2.5 MG TAB PO SCH (17:55)
--- NOTE | 2016-07-06 18:08 | PN ---
Date/Time of Note Date/Time of Note DATE: 07/06/16 TIME: 18:06 Assessment/Plan Lines/Catheters IV Catheter Type (from Nrsg): Saline Lock Paloma[place] in Place (from Nrsg): No Assessment/Plan Assessment/Plan POD# 2 s/p left ankle HWR, revision syndesmosis ORIF s/p maissounve; Uncontrolled DM, HTN - Pain control per pain mgmt tea, - DM control from Hospitalist team - NWB to the LLE - PT to GT - jaylene, SCDs, genaro will be discharged home tonight or first thing in the morning with 1. Oxycontin 20 mg BID 2. [place] 10/325 mg q6hr prn 4. Gabapentin 600 mg TID 5. Patient has follow up appointment with Dr Bullock on 07/17/16 at 10 am Subjective 24 Hr Interval Summary Doing much better with better pain control Exam/Review of Systems Vital Signs Vitals Vital Signs Date Time Temp Pulse Resp B/P Pulse Ox O2 Delivery O2 Flow Rate FiO2 07/06/16 11:00 97.0 77 18 136/64 98 Room Air 07/04/16 20:15 2.0 Intake and Output 07/05/16 07/05/16 07/06/16 15:00 23:00 07:00 Intake Total 2000 ml 1800 ml Output Total 2500 ml 2000 ml Balance -500 ml -200 ml Exam Constitutional: alert, oriented, well developed Musculoskeletal: other (LLE/ toes wiggle, splint intact, cr brisk, silt m/l/d/p /fdws) Results Result Diagram: 07/05/16 04407/05/16440 SHERLY TORO MD Jul 06, 2016 18:08
--- NOTE | 2016-07-06 18:10 | DS ---
Date/Time of Note Date/Time of Note DATE: 07/06/16 TIME: 18:08 Discharge Summary Admission/Discharge Info Admit Date/Time Jul 04, 2016 at 14:37 Discharge Date/Time 07/07/2016 Final Diagnosis Left ankle painful HW Left ankle recurrent syndesmosis rupture Patient Condition: Good Consults Pain mgmt Hospitalist Procedures Left ankle HWR Left ankle syndesmosis ORIF Hospital Course Very pleasant male status post left ankle surgery post op day 2 . Pain moderately controlled at rest, mildly controlled with movement. Continue current medications, I encourage patient to use prn oxycodone. My recommendations for discharge are 1. Oxycontin 20 mg BID 2. [place] 10/325 mg q6hr prn 4. Gabapentin 600 mg TID 5. Patient has follow up appointment with me on 07/17/16 at 10 am Thank you for the consult , I am signing off. Please feel free to contact me Home Meds Active Scripts Glyburide* (Glyburide*) 2.5 Mg Tablet, 2.5 MG PO BID, #60 TAB Prov:MELINDA BROUSSARD MD 07/06/16 Metformin Hcl* (Metformin Hcl*) 1,000 Mg Tablet, 1000 MG PO WITH BREAKFAST DINNE , #60 TAB Prov:MELINDA BROUSSARD MD 07/06/16 Reported Medications [[place]] No Conflict Check 02/19/15 Metformin* (Glucophage*) 500 Mg Tab, 250 MG PO WITH BREAKFAST, TAB 02/19/15 Follow-up Plan with Dr Ag Toro in [address] Bullock in 1 week Pending Labs Laboratory Tests Test 07/05/16 20:56 07/06/16 02:06 07/06/16 07:52 07/06/16 11:41 Bedside Glucose 218mg/dL (70-220) 225mg/dL (70-220) 223mg/dL (70-220) 222mg/dL (70-220) Test 07/06/16 16:51 Bedside Glucose 183mg/dL (70-220) SHERLY TORO MD Jul 06, 2016 18:09
--- NOTE | 2016-07-06 18:10 | PDOCDIS ---
Discharge Instructions CONDITION Patient Condition: Good HOME CARE INSTRUCTIONS: Special Diet: carb control ACTIVITY: Activity Restrictions: Do not Drive No Weight Bearing Bathing Restrictions: Shower (KEEP DRY) SHERLY TORO MD Jul 06, 2016 18:10
[2016-07-06] MEDS: RIVAROXABAN 10 MG TABLET PO SCH (18:24)
[2016-07-06] MEDS: glyBURIDE 5 MG TAB PO SCH (18:43)
[2016-07-06] MEDS ORDERED: ERGOCALCIFEROL 50,000 UNIT CAP PO ONE (19:30)
[2016-07-06 20:45] VITALS: BP 139/98; RESP 20
[2016-07-06] MEDS ORDERED: MAGNESIUM HYDROXIDE 30ML CUP PO SCH (21:00)
[2016-07-06 23:47] VITALS: BP 148/90; RESP 18
[2016-07-07] MEDS: oxyCODONE 5 MG TAB PO PRN ×2 (04:22→08:00)
[2016-07-07] MEDS: ACETAMINOPHEN 325 MG TAB PO SCH (05:51)
[2016-07-07 07:49] VITALS: BP 156/93; RESP 18
[2016-07-07] MEDS: INSULIN ASPART [NOVOLOG] 3 ML PEN SC SCH (07:50)
[2016-07-07] MEDS: metFORMIN 500 MG TAB PO SCH (08:00)
[2016-07-07] MEDS: glyBURIDE 5 MG TAB PO SCH (08:01)
== END 2016-07-07 08:19 | disposition home or self-care (01) | DRG 494 ==
LOC: SDS 12:13 → MS1 14:37 → OBSVTOIN 07-06 18:21
PROVIDERS: ADMIT Orthopaedic Surgery; ATTEND Orthopaedic Surgery
PROC: 0SPG04Z Removal of Internal Fixation Device from Left Ankle Joint, Open Approach (ICD-10-PCS; 2016-07-04)
PROC: 0QW Lower Bones, Revision (ICD-10-PCS; 2016-07-04)
PROC: 0QWH04Z Revision of Internal Fixation Device in Left Tibia, Open Approach (ICD-10-PCS; principal; 2016-07-04 15:00)
DX: T84.117A Breakdown (mechanical) of internal fixation device of bone of left lower leg, initial encounter (principal); E11.65 Type 2 diabetes mellitus with hyperglycemia; I10 Essential (primary) hypertension; T84.84XA Pain due to internal orthopedic prosthetic devices, implants and grafts, initial encounter; E66.3 Overweight; Z68.39 Body mass index [BMI] 39.0-39.9, adult
CPT/HCPCS: 73610; 80048; 82962; 83036; 85025; 87070; 87075; 97163; G0378; J0360; J0690; J1170; J1815; J1885; J2001; J2250; J2270; J2405; J2795; J3010